=== PATIENT | male | born 1965 | race African-American/Black ===

== ENCOUNTER 2021-01-24 22:14 | Emergency (ER) | payer SELFPAY ==
[~2021-01-24] VITALS: Ht 165.1 cm; Wt 55.4 kg
[~2021-01-24 22:14] MED LIST: LISI1TAB20 PO; METF10007 PO; NAPR-514 PO; NYST15CR TP
--- NOTE | 2021-01-24 22:46 | PHYS DOC ---
Past Medical History Past Medical History: Diabetes-Type II, Hypertension Additional Past Medical Histor: Patient states that he may have schizoaffective disorder, possibly bipolar Past Surgical History: No Surgical History Smoking Status: Current Every Day Smoker Additional Information: reports homelessness, patient states he was incarcerated for over 30 years Alcohol Use: Occasionally Drug Use: None General Adult EDM: Chief Complaint: Brought in by police for sleeping outside, possible alcohol intoxication HPI: HPI: 55-year-old male was brought in by EMS for sleeping outside and was confused and possibly intoxicated, the patient [facility] by [facility], the patient has no active complaints at this time, he denies any physical symptoms, he says "I am really dizzy", however he will not elaborate, denies any focal numbness weakness/tingling, no headache, no chest pain or shortness of breath, he also complained of some nausea, denies vomiting, no fever, chills, is not vaccinated to coronavirus 19. Denies any alcohol or drug use this evening. Review of Systems: Review of Systems: General: no fevers , no chills, no general weakness Eyes: no blurred vision, no diplopia Skin: no rashes Neck: no swelling, no neck stiffness, no neck pain Heme: no bleeding, no lymph node enlargement Ear/Nose/Throat: No sore throat, no runny nose, no hearing loss, no difficulty swallowing Cardiovascular: no Chest pain, no palpitations Respiratory: No dyspnea, no cough, no hemoptysis Gastrointestinal: No abdominal pain, + nausea, no vomiting, no diarrhea, no blood in stool Genitourinary: no dysuria, no hematuria Musculoskeletal: no back pain, no leg pain, no arm pain, no arthralgia Neurologic: no headaches, + dizziness, no focal numbness/tingling, no focal weakness Psych: no depression, no anxiety, no SI/HI *All review of systems are negative other than what is noted above Heart Score: C/O Chest Pain: No Risk Factors: Risk Factors: DM, Current or recent (<one month) smoker, HTN, HLP, family history of CAD, obesity. Risk Scores: Score 0 - 3: 2.5% MACE over next 6 weeks - Discharge Home Score 4 - 6: 20.3% MACE over next 6 weeks - Admit for Clinical Observation Score 7 - 10: 72.7% MACE over next 6 weeks - Early Invasive Strategies Allergies: Allergies: Allergies Coded Allergies Type Severity Reaction Last Updated Verified No Known Drug Allergies 01/20/15 No Physical Exam: PE: Gen-well appearing, no acute distress Head: Normocephalic/Atraumatic ENT: atraumatic, PERRLA, EOMI, oropharynx clear Neck: supple, full ROM/strength, no JVD, no nuchal rigidity Lungs: no distress, speaks in full sentences, Clear to auscultation bilaterally CV: reg rate, rhythm, no murmus/rubs/gallops, peripheral pulses equal in all extremities Abdomen: soft/nontender, no guarding/rebound tenderness, no rigidity, non distended, normoactive bowel sounds Musculoskeletal: full ROM/strength in all extremities, atraumatic, no swelling Back: full range of motion/strength Skin: intact, no rashes Lymph: no gross DERRICK Neuro: alert and oriented x 4, CN 2-12 grossly intact, Motor strength is 5/5 in all extremities, no focal sensory deficits, no focal ataxia, ambulatory with steady gait Psych: Appears clinically sober, paranoid affect but otherwise not suicidal or homicidal EKG: EKG: Twelve-lead EKG was performed at 11:21 PM: Normal sinus rhythm, rate is 77, early repolarization, otherwise nonischemic appearing EKG [] Radiology/Procedures: Radiology/Procedures: [] Course & Med Decision Making: Course & Med Decision Making 55-year-old male comes to the emergency department for several nonspecific symptoms like dizziness, nausea, he the patient is a poor historian but does appear neurologically intact, no focal findings, differential diagnosis entertai rashaad includes but not open to alcohol intoxication, dehydration, UTI, pyelonephritis, drug use, psychiatric disorder, unlikely any stroke or any intracranial bleeding/meningitis, will get a head CT, labs, EKG out of an abundance of caution, the patient does not have focal findings, will reevaluate examine him during work-up to determine the best course of action as more data becomes available 3:15 AM: The patient remains calm and comfortable, says that his symptoms had resolved prior to arrival, is asymptomatic and ambulatory steady gait, Reevaluation at 4:30 AM: Patient is now ambulatory around the department with no symptoms, the head CT is negative, he is asymptomatic, I believe he is stable for discharge for close outpatient psychiatric and primary care follow-up Patient was seen in the ED for evaluation and his work-up here was negative, there is no apparent evidence of any emergency medical pathology at this time, patient was advised follow-up with their primary care provider /physician in the next 24-48 hours, he does not have a primary care doctor so I did refer him to establish care at one of our local indigent clinics and also the patient is what appears to be a need for close psychiatric evaluation, I do not believe he is a threat to harming himself or others but I did advise him of the resource of the [facility] and gave him that information, finally I advised him to return to the ED before then if any new or worsening / concerning symptoms had developed. Or if he had any thoughts of harming himself or others all questions and concerns were addressed at time of disposition Estrellitaon Disclaimer: Dragasha Disclaimer: This electronic medical record was generated, in whole or in part, using a voice recognition dictation system. Departure Departure Impression: Primary Impression: Dizziness Disposition: 01 HOME / SELF CARE / HOMELESS Condition: IMPROVED Referrals: NO PCP (PCP) Isis GARCÍA MD Patient Instructions: Altered Mental Status, Dizziness Additional Instructions: your tests here were okay, I recommend you follow-up with your primary care medical doctor and also the [facility], [address] [place] [id number]. [phone]. 24 hr crisis line: [phone]. [email or web address] Return to the nearest emergency room before follow-up with any new or concerning physical symptoms develop or if you have any thoughts of harming your self or others REBEKA TORRES MD Jan 24, 2021 22:46
--- NOTE | 2021-01-25 | EKG ---
[facility] [address] [place] [address] Test Date: 2021-01-24 Test Time: 23:21:23 Pat Name: HORTENCIA LOO Department: Room: Gender: M Us Marketing Director: : 1965 Requested By: REBEKA TORRES Order Number: [id number] Reading MD: Measurements Intervals [place] Rate: 77 P: 62 LA: 148 QRS: 45 QRSD: 84 T: 65 QT: 406 QTc: 461 Interpretive Statements No previous ECG available for comparison
[2021-01-25] MEDS ORDERED: MORPHINE SULFATE 4 MG/ML INJ. IVP ONE (00:30)
[2021-01-25 00:39] LABS: BASO # 0.1 x10^3/uL (0.0-0.2); BASO % 1 % (0-3); EOS # 0.1 x10^3/uL (0.0-0.7); EOS % 2 % (0-3); HEMATOCRIT 47.2 % (39.0-53.0); HEMOGLOBIN 15.7 g/dL (13.0-17.5); LYMPH # 0.9 x10^3/uL (1.0-4.8); LYMPH % 13 % (24-48); MEAN CORPUSCULAR HEMOGLOBIN 30 pg (25-35); MEAN CORPUSCULAR HGB CONC 33 g/dL (31-37); MEAN CORPUSCULAR VOLUME 89 fL (79-100); MONO # 0.6 x10^3/uL (0.0-1.1); MONO % 9 % (0-9); NEUT # 5.5 x10^3/uL (1.8-7.7); NEUT % 76 % (31-73); PLATELET COUNT 391 x10^3/uL (140-400); RED BLOOD COUNT 5.29 x10^6/uL (4.30-5.70); RED CELL DISTRIBUTION WIDTH 15.4 % (11.5-14.5); WHITE BLOOD COUNT 7.3 x10^3/uL (4.0-11.0)
[2021-01-25 01:44] LABS: CALCIUM 9.5 mg/dL (8.5-10.1); CREATININE 1.3 mg/dL (0.7-1.3); GFR 69.1; POTASSIUM 4.4 mmol/L (3.5-5.1)
[2021-01-25 01:50] LABS: ALBUMIN 3.9 g/dL (3.4-5.0); ALBUMIN/GLOBULIN RATIO 1.1 (1.0-1.7); TOTAL BILIRUBIN 0.9 mg/dL (0.2-1.0); TOTAL PROTEIN 7.6 g/dL (6.4-8.2)
--- NOTE | 2021-01-25 03:17 | RAD ---
PQRS Compliance Statement: One or more of the following individualized dose reduction techniques were utilized for this examinat ion: 1. Automated exposure control 2. Adjustment of the mA and/or kV according to patient size 3. Use of iterative reconstruction technique CT HEAD WITHOUT CONTRAST History: Confusion. Comparison: CT head without contrast January 20, 2015. Procedure: Axial images are obtained of the head from the skull base through the vertex without IV co ntrast. Findings: The ventricles and sulci are normal for the patient's age. No mass-effect, midline shift, hemorrhage, extra-axial fluid collection, or obvious acute infarction is identified. Basilar cisterns are patent. Bone windows demonstrate no acute calvarial abnormality. The visualized paranasal sinuses are clear. Mastoid air cells are well aerated. IMPRESSION: No acute intracranial abnormality. Electronically signed by: Myron Goodson MD (01/25/2021 3:14 AM) [facility]
[2021-01-25 06:14] VITALS: BP 131/88
== END 2021-01-25 09:25 | disposition home or self-care (01) ==
LOC: ER 22:14
DX: R42 Dizziness and giddiness (principal); R41.0 Disorientation, unspecified; E11.9 Type 2 diabetes mellitus without complications; I10 Essential (primary) hypertension; F17.200 Nicotine dependence, unspecified, uncomplicated; Z59.0 Homelessness
CPT/HCPCS: 36415; 70450; 80053; 83690; 84484; 85025; 93005; 99285; G0480